=== PATIENT | male | born 1940 | race Caucasian/White ===

== ENCOUNTER 2016-11-14 09:50 | Inpatient (IN) | payer MEDICARE ==
[~2016-11-14] VITALS: Ht 167.6 cm; Wt 80.8 kg
[2016-11-14] VITALS (12 sets, daily range): BP systolic 133–170; BP diastolic 70–90
--- NOTE | ~2016-11-14 | O ---
[place], [place] OPERATIVE NOTE NAME: [id number] UNIT #: [id number] ROOM: [facility] DOCTOR: EFE DELVALLE MD BIRTHDATE: [birth year] DOS: 11/14/2016 PREOPERATIVE DIAGNOSIS: Acute appendicitis. POSTOPERATIVE DIAGNOSIS: Acute appendicitis. PROCEDURE: Laparoscopic appendectomy. SURGEON: Efe Delvalle MD ENROLLMENT SPECIALIST: MS3. ANESTHESIA: General with endotracheal intubation. INDICATIONS: This is a 76-year-old gentleman admitted here with acute appendicitis. It was decided to take the patient to the operating room for a laparoscopic appendectomy. The procedure and its complications explained to the patient in detail. Complications that were discussed included but were not limited to bleeding, infection, hematoma/seroma/abscess formation, prolonged postoperative pain, damage to underlying vital structures. He agreed to proceed. DESCRIPTION OF PROCEDURE: After identifying the patient, the patient was brought to the operating suite and laid in the supine position. After induction of general anesthesia, the parts were painted and draped in the usual sterile fashion and a Kim catheter was introduced prior to painting and draping. The left upper extremity was stuck to the patient's side as well. A timeout procedure was called and transverse incision below the umbilicus was made. The skin and the subcutaneous tissue were incised in the line of the incision. The fascia was incised and the peritoneum was opened. A 10 mm Shukri port was introduced and a pneumoperitoneum was created. Under direct vision, a left lower quadrant incision of 10 mm was made and suprapubic incision of 5 mm was made and appropriate size ports were introduced. The patient was then turned in Trendelenburg, right side up position. The cecum was identified and the appendix was found to be in paracecal position, and it was found to be inflamed and had inflammatory adhesions to the pelvic wall. With the help of blunt dissection, the appendix was from the pelvic wall area, and it was held up with the help of an Endo Brooks forceps. It was then stapled across with the help of an Endo-JUSTIN stapler and placed in an EndoCatch bag and removed from the peritoneal cavity and sent for histopathological diagnosis. Hemostasis was confirmed, and saline was used for irrigation. After hemostasis was confirmed again the saline was sucked away, and there was no more bleeding seen. The suprapubic and the umbilical port was then removed, and there was no bleeding seen. The umbilical port was also removed and the fascial defect was approximated with the help of 0 Vicryl in an interrupted fashion. Thereafter, the stay sutures were tied together as well and these edges of the skin were approximated with the help of 4-0 Vicryl. After they were infiltrated with 1% plain lidocaine, a dressing was given the Kim catheter was removed, and the patient was taken to the recovery room in stable fashion. There were no complications. Dr. Efe Delvalle, the attending surgeon, was present throughout [place], [place] OPERATIVE NOTE NAME: ANSELMOELIZABETH Jaja UNIT #: [id number] ROOM: [facility] DOCTOR: EFE DELVALLE MD BIRTHDATE: [birth year] the operating case. Efe Delvalle MD CM:OPRECORD:OPERATIVE NOTE [id number] EFE DELVALLE MD 11/14/161912 interface
[~2016-11-14 09:50] MED LIST: ASPIRIN PO; AUGMENTIN 875 M1 TAB PO; CIPRO500 MG PO; COMBIVENT1 ARO IH; DONNATAL1 TAB PO; GEMCOR600 MG PO; LATANOPROST 2.2.5 ML OP; LATANOPROST OP; MOTRIN800 MG PO; MULTIPLE VITAMI1 CAP PO; NIACIN500 MG PO; NORFLEX100 MG PO; OMNICEF300 MG PO; OSTEO-BI-FLEX 21 TAB PO; RAPID FLOW; TERAZOSIN HCL2 M1 PO; VICO10300 PO; VICODIN 5/500 505 MG PO; VITAMIN C; VITAMIN D
[2016-11-14] MEDS ORDERED: TAMSULOSIN HCL0.4 MG PO (10:00)
[2016-11-14] MEDS ORDERED: FINASTERIDE5 M1 PO (10:00)
[2016-11-14 10:25] LABS: BASO # 0.1 10*3/uL (0.0-0.1); BASO % 0.4 % (0.0-1.0); EOS # 0.2 10*3/uL (0.0-0.4); EOS % 1.6 % (1.0-4.0); HEMATOCRIT 46.1 % (42.0-52.0); HEMOGLOBIN 15.4 g/dl (14.0-18.0); IG # 0.1 10*3/uL (0.0-0.1); LYMPH # 1.7 10*3/uL (1.3-4.4); LYMPH % 13.2 % (27.0-41.0); MEAN CELL VOLUME 90.4 fl (80.0-94.0); MEAN CORPUSCULAR HGB 30.2 pg (27.0-31.0); MEAN CORPUSCULAR HGB CONC 33.4 g/dl (33.0-37.0); MONO # 1.3 10*3/uL (0.1-1.0); MONO % 9.9 % (3.0-9.0); NEUT # 9.6 10*3/uL (2.3-7.9); NEUT % 74.5 % (47.0-73.0); PLATELET COUNT AUTOMATED 208 10*3/uL (130-400); RED CELL DISTRI WIDTH 12.6 % (0-14.5); WHITE BLOOD COUNT 12.9 10*3/uL (4.8-10.8)
[2016-11-14 10:27] LABS: BILIRUBIN NEGATIVE (NEGATIVE); BLOOD NEGATIVE (NEGATIVE); CLARITY CLEAR (CLEAR); COLOR YELLOW (YELLOW); GLUCOSE NEGATIVE (NEGATIVE); KETONE NEGATIVE (NEGATIVE); LEUKO ESTERASE NEGATIVE (NEGATIVE); NITRITE NEGATIVE (NEGATIVE); PH 5.5 (5.0-9.0); PROTEIN NEGATIVE (NEGATIVE); SPECIFIC GRAVITY 1.025 (1.005-1.030); UROBILINOGEN 0.2 E.U./dl (0.2-1.0)
[2016-11-14 10:34] LABS: MUCOUS 1+; RBC 0-2 rbc/hpf (0-2); URINE REFLEX COMMENT NO (NO); WBC 0-2 wbc/hpf (0-5)
[2016-11-14 10:39] LABS: ALBUMIN 3.5 gm/dl (3.1-4.5); ALKALINE PHOSPHATASE 63 U/L (45-117); BUN 16 mg/dl (7-24); CARBON DIOXIDE 29 mmol/L (21-32); CHLORIDE 106 mmol/L (98-107); EST GLOM FILT AFRICAN AMERICAN > 60 ml/min; GLUCOSE 89 mg/dL (65-99); POTASSIUM 4.2 mmol/L (3.5-5.1); SGOT/AST 9 IU/L (3-35); SGPT/ALT 22 U/L (12-78); SODIUM 143 mmol/L (136-145); TOTAL PROTEIN 6.7 gm/dL (6.4-8.2)
[2016-11-14] MEDS ORDERED: OSTEO BI-FLEX1 EAC1 PO (14:57)
[2016-11-14] MEDS ORDERED: MULTI VITAMINS1 TAB PO (14:57)
[2016-11-14] MEDS ORDERED: CALCIUM 600600 M2 PO (14:58)
[2016-11-15] VITALS: BP 159/99
[2016-11-15 02:58] LABS: BILIRUBIN NEGATIVE (NEGATIVE); BLOOD 3+ (NEGATIVE); CLARITY SL CLOUDY (CLEAR); COLOR YELLOW (YELLOW); GLUCOSE NEGATIVE (NEGATIVE); KETONE NEGATIVE (NEGATIVE); LEUKO ESTERASE TRACE (NEGATIVE); NITRITE NEGATIVE (NEGATIVE); PROTEIN NEGATIVE (NEGATIVE); SPECIFIC GRAVITY <= 1.005 (1.005-1.030); UROBILINOGEN 0.2 E.U./dl (0.2-1.0)
[2016-11-15 03:04] LABS: BASO # 0.1 10*3/uL (0.0-0.1); BASO % 0.5 % (0.0-1.0); EOS # 0.1 10*3/uL (0.0-0.4); EOS % 0.6 % (1.0-4.0); HEMATOCRIT 42.4 % (42.0-52.0); HEMOGLOBIN 14.5 g/dl (14.0-18.0); LYMPH # 1.2 10*3/uL (1.3-4.4); LYMPH % 9.3 % (27.0-41.0); MEAN CELL VOLUME 89.1 fl (80.0-94.0); MEAN CORPUSCULAR HGB 30.5 pg (27.0-31.0); MEAN CORPUSCULAR HGB CONC 34.2 g/dl (33.0-37.0); MEAN PLATELET VOLUME 10.2 fl (9.6-12.3); MONO # 1.1 10*3/uL (0.1-1.0); MONO % 9.1 % (3.0-9.0); NEUT # 9.9 10*3/uL (2.3-7.9); NEUT % 80.3 % (47.0-73.0); PLATELET COUNT AUTOMATED 194 10*3/uL (130-400); RED BLOOD COUNT 4.76 10*6/uL (4.50-5.90); RED CELL DISTRI WIDTH 12.7 % (0-14.5); WHITE BLOOD COUNT 12.4 10*3/uL (4.8-10.8)
[2016-11-15 03:08] LABS: RBC 41-50 rbc/hpf (0-2); URINE REFLEX COMMENT YES (NO)
[2016-11-15 03:08] LABS: BASO # 0.1 10*3/uL (0.0-0.1); BASO % 0.5 % (0.0-1.0); EOS # 0.1 10*3/uL (0.0-0.4); EOS % 0.6 % (1.0-4.0); HEMATOCRIT 42.3 % (42.0-52.0); HEMOGLOBIN 14.4 g/dl (14.0-18.0); IG # 0.1 10*3/uL (0.0-0.1); LYMPH # 1.1 10*3/uL (1.3-4.4); LYMPH % 8.9 % (27.0-41.0); MEAN CELL VOLUME 89.4 fl (80.0-94.0); MEAN CORPUSCULAR HGB 30.4 pg (27.0-31.0); MEAN PLATELET VOLUME 10.2 fl (9.6-12.3); MONO # 1.1 10*3/uL (0.1-1.0); MONO % 8.8 % (3.0-9.0); NEUT # 10.1 10*3/uL (2.3-7.9); NEUT % 80.8 % (47.0-73.0); PLATELET COUNT AUTOMATED 196 10*3/uL (130-400); RED BLOOD COUNT 4.73 10*6/uL (4.50-5.90); RED CELL DISTRI WIDTH 12.6 % (0-14.5); WHITE BLOOD COUNT 12.5 10*3/uL (4.8-10.8)
[2016-11-15 03:15] LABS: INTERNATIONAL NORM RATIO 1.1 (2.0-3.5); PROTHROMBIN TIME 11.4 SECONDS (9.0-12.4)
[2016-11-15 03:20] LABS: ALBUMIN 3.2 gm/dl (3.1-4.5); ALKALINE PHOSPHATASE 55 U/L (45-117); BILIRUBIN, TOTAL 1.2 mg/dl (0.2-1.0); BUN 14 mg/dl (7-24); CARBON DIOXIDE 26 mmol/L (21-32); CHLORIDE 107 mmol/L (98-107); CHOLESTEROL 100 mg/dL (<200); EST GLOM FILT AFRICAN AMERICAN > 60 ml/min; GLUCOSE 102 mg/dL (65-99); HDL CHOLESTEROL 36 mg/dl (40-60); LDL CHOLESTEROL 41 mg/dL (9-159); PHOSPHOROUS 3.5 mg/dL (2.5-4.9); POTASSIUM 4.2 mmol/L (3.5-5.1); SGOT/AST 13 IU/L (3-35); SGPT/ALT 17 U/L (12-78); SODIUM 142 mmol/L (136-145); TOTAL PROTEIN 6.2 gm/dL (6.4-8.2); TRIGLYCERIDES 113 mg/dl (<150); VLDL CHOLESTEROL 23 mg/dL (6-40)
[2016-11-15 03:28] LABS: FREE T4 1.29 ng/dl (0.76-1.46)
[2016-11-15 06:13] LABS: FOLIC ACID 20.91 ng/mL (>5.38); VITAMIN D, 25-HYDROXY 34.3 ng/mL (30-100)
[2016-11-15 08:00] VITALS: BP 166/86
[2016-11-15] MEDS ORDERED: ACETAMINOPHEN-H1 TA2 PO (09:58)
== END 2016-11-15 10:42 | disposition home or self-care (01) | DRG 853 ==
LOC: ED 09:50 → EDHOLD 13:35 → 5E 13:35
PROVIDERS: Emergency Medicine; Student in an Organized Health Care Education/Training Program; Surgery
PROC: 0DTJ4ZZ Resection of Appendix, Percutaneous Endoscopic Approach (ICD-10-PCS; principal; 2016-11-14)
DX: A41.9 Sepsis, unspecified organism (principal); K35.3 Acute appendicitis with localized peritonitis; R31.9 Hematuria, unspecified; R03.0 Elevated blood-pressure reading, without diagnosis of hypertension; N40.0 Benign prostatic hyperplasia without lower urinary tract symptoms; H40.9 Unspecified glaucoma; Z82.49 Family history of ischemic heart disease and other diseases of the circulatory system; Z82.0 Family history of epilepsy and other diseases of the nervous system; Z79.899 Other long term (current) drug therapy; Z90.49 Acquired absence of other specified parts of digestive tract

== ENCOUNTER → 2016-12-05 | Outpatient (CLI) | payer MEDICARE ==
[~2016-12-05] MED LIST changes: +ACETAMINOPHEN-H1 TA2 PO; +CALCIUM 600600 M2 PO; +FINASTERIDE5 M1 PO; +MULTI VITAMINS1 TAB PO; +OSTEO BI-FLEX1 EAC1 PO; +TAMSULOSIN HCL0.4 MG PO
== END | disposition home or self-care (01) ==
LOC: LAB 10:23
DX: R97.20 Elevated prostate specific antigen [PSA] (principal)

== ENCOUNTER → 2017-06-05 | Outpatient (CLI) | payer MEDICARE | END | disposition home or self-care (01) | LOC: LAB 10:02 | DX: R97.20 Elevated prostate specific antigen [PSA] (principal) ==

== ENCOUNTER → 2018-06-27 | Outpatient (CLI) | payer MEDICARE | END | disposition home or self-care (01) | LOC: RAD 15:12 | DX: M47.896 Other spondylosis, lumbar region (principal) ==

== ENCOUNTER → 2019-01-16 | Outpatient (CLI) | payer OTHER | END | disposition home or self-care (01) | LOC: MRI 10:00 | DX: F03.91 Unspecified dementia, unspecified severity, with behavioral disturbance (principal); I67.82 Cerebral ischemia ==

== ENCOUNTER 2019-07-26 13:39 | Emergency (ER) | payer MEDICARE ==
[~2019-07-26] VITALS: Ht 167.6 cm; Wt 74.8 kg
--- NOTE | ~2019-07-26 | EKG ---
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
--- NOTE | ~2019-07-26 | EKG ---
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
[2019-07-26 13:57] LABS: BASO # 0.1 10*3/uL (0.0-0.1); BASO % 0.9 % (0.0-1.0); EOS # 0.2 10*3/uL (0.0-0.4); EOS % 2.8 % (1.0-4.0); HEMATOCRIT 45.6 % (42.0-52.0); HEMOGLOBIN 15.2 g/dl (14.0-18.0); LYMPH # 1.6 10*3/uL (1.3-4.4); MEAN CELL VOLUME 92.3 fl (80.0-94.0); MEAN CORPUSCULAR HGB 30.8 pg (27.0-31.0); MEAN CORPUSCULAR HGB CONC 33.3 g/dl (33.0-37.0); MEAN PLATELET VOLUME 10.4 fl (9.6-12.3); MONO # 0.6 10*3/uL (0.1-1.0); MONO % 9.2 % (3.0-9.0); NEUT # 4.3 10*3/uL (2.3-7.9); PLATELET COUNT AUTOMATED 215 10*3/uL (130-400); RED BLOOD COUNT 4.94 10*6/uL (4.50-5.90); RED CELL DISTRI WIDTH 12.3 % (0-14.5); WHITE BLOOD COUNT 6.8 10*3/uL (4.8-10.8)
[2019-07-26 14:07] LABS: ACT PARTIAL THROMBO TIME 27.7 SECONDS (20.0-32.1)
[2019-07-26 14:16] LABS: ALBUMIN 3.6 gm/dl (3.1-4.5); ALKALINE PHOSPHATASE 66 U/L (45-117); BUN 17 mg/dl (7-24); CHLORIDE 107 mmol/L (98-107); CREATININE 0.86 mg/dL (0.70-1.30); POTASSIUM 3.8 mmol/L (3.5-5.1); SGOT/AST 15 IU/L (3-35); SGPT/ALT 23 U/L (12-78); SODIUM 141 mmol/L (136-145); TOTAL PROTEIN 6.8 gm/dL (6.4-8.2)
[2019-07-26 14:27] LABS: TROPONIN I < 0.015 ng/ml (<0.045)
== END 2019-07-26 16:45 | disposition home or self-care (01) ==
LOC: ED 13:39
PROVIDERS: Emergency Medicine
DX: R07.89 Other chest pain (principal); M06.9 Rheumatoid arthritis, unspecified; Z87.442 Personal history of urinary calculi; Z79.899 Other long term (current) drug therapy; Z90.49 Acquired absence of other specified parts of digestive tract

== ENCOUNTER → 2019-08-08 | Outpatient (CLI) | payer MEDICARE ==
[~2019-08-08] MED LIST changes: +ARICEPT10 M1 PO
--- NOTE | 2019-08-08 10:00 | NUR ---
INFORMED CONSENT OBTAINED FOR EXERCISE CARIOLITE STRESS TEST WITH DR. LUZ. RESTING EKG NSR WITH A SUPINE HR OF 75 WITH BP OF 124/68 AND HR OF 78 WITH BP OF 130/80 IN STANDING POSITION. PT COMPLETED 7:00 OF A SAMY PROTOCOL WITH COMPLETION OF 1:00 OF STAGE III AT 3.4 MPH AND 14% GRADE. REACHED A PEAK HR OF 126 WHICH IS 91% OF PREDICTED MAX WITH A PEAK BP OF 156/30. TEST TERMINATED BECAUSE OF PHYSICIAN DISCRETION. HAD NO CHEST PAIN OR ANY EKG CHANGES. HAS A GOOD EXERCISE TOLERANCE. LAST RECOVERY HR OF 91 WITH BP OF 130/74. AWAITING SCANNING IN STABLE CONDITION.
== END | disposition home or self-care (01) ==
LOC: CARD 08-06 08:00
DX: R07.89 Other chest pain (principal)

== ENCOUNTER → 2020-04-28 | Outpatient (CLI) | payer MEDICARE | END | disposition home or self-care (01) | LOC: US 14:30 | PROVIDERS: ATTEND Physician Assistant | DX: N63.21 Unspecified lump in the left breast, upper outer quadrant (principal) ==

== ENCOUNTER → 2020-05-20 | Day surgery (SDC) | payer MEDICARE ==
[2020-05-20 10:30] LABS: ACT PARTIAL THROMBO TIME 28.7 SECONDS (20.0-32.1)
== END | disposition home or self-care (01) ==
LOC: SDC 01:34
PROVIDERS: ATTEND Physician Assistant
DX: D68.8 Other specified coagulation defects (principal); N63.0 Unspecified lump in unspecified breast; I48.91 Unspecified atrial fibrillation; I26.99 Other pulmonary embolism without acute cor pulmonale; Z79.899 Other long term (current) drug therapy

== ENCOUNTER → 2020-06-22 | Outpatient (CLI) | payer MEDICARE | END | disposition home or self-care (01) | LOC: LAB 11:37 | PROVIDERS: ATTEND Urology | DX: N40.1 Benign prostatic hyperplasia with lower urinary tract symptoms (principal) ==

== ENCOUNTER 2020-11-06 10:05 | Emergency (ER) | payer MEDICARE ==
[~2020-11-06] VITALS: Ht 167.6 cm; Wt 73.5 kg
[2020-11-06 11:00] LABS: BILIRUBIN Negative (Negative); BLOOD 3+ (Negative); CLARITY Turbid (Clear); COLOR Yellow (Yellow); GLUCOSE Negative (Negative); KETONE Negative (Negative); LEUKO ESTERASE 3+ (Negative); NITRITE Positive (Negative); PH 5.5 (4.5-8.0); SPECIFIC GRAVITY 1.015 (1.001-1.030); UROBILINOGEN 0.2 E.U./dl (0.0-1.0)
[2020-11-06 11:09] LABS: RBC TNTC rbc/hpf (0-2)
[2020-11-06 11:10] LABS: WBC TNTC wbc/hpf (0-5)
[2020-11-06 11:25] LABS: BASO # 0.1 10*3/uL (0.0-0.1); BASO % 0.8 % (0.0-1.0); EOS # 0.2 10*3/uL (0.0-0.4); EOS % 1.6 % (1.0-4.0); HEMATOCRIT 45.7 % (42.0-52.0); LYMPH # 1.1 10*3/uL (1.3-4.4); LYMPH % 12.3 % (27.0-41.0); MEAN CELL VOLUME 89.8 fl (80.0-94.0); MEAN CORPUSCULAR HGB 30.5 pg (27.0-31.0); MEAN CORPUSCULAR HGB CONC 33.9 g/dl (33.0-37.0); MEAN PLATELET VOLUME 10.2 fl (9.6-12.3); MONO # 0.8 10*3/uL (0.1-1.0); MONO % 8.3 % (3.0-9.0); NEUT # 7.1 10*3/uL (2.3-7.9); NEUT % 76.8 % (47.0-73.0); PLATELET COUNT AUTOMATED 214 10*3/uL (130-400); RED BLOOD COUNT 5.09 10*6/uL (4.50-5.90); RED CELL DISTRI WIDTH 12.4 % (0-14.5); WHITE BLOOD COUNT 9.2 10*3/uL (4.8-10.8)
[2020-11-06 11:41] LABS: ALBUMIN 3.3 gm/dl (3.1-4.5); ALKALINE PHOSPHATASE 69 U/L (45-117); BUN 13 mg/dl (7-24); CHLORIDE 111 mmol/L (98-107); CREATININE 1.07 mg/dL (0.70-1.30); LIPASE 59 U/L (73-393); POTASSIUM 3.4 mmol/L (3.5-5.1); SGOT/AST 10 IU/L (3-35); SGPT/ALT 20 U/L (12-78); SODIUM 141 mmol/L (136-145); TOTAL PROTEIN 6.5 gm/dL (6.4-8.2)
[2020-11-06] MEDS ORDERED: CIPRO500 MG PO (12:14)
== END 2020-11-06 12:16 | disposition home or self-care (01) ==
LOC: ED 10:05
PROVIDERS: Emergency Medicine
DX: N39.0 Urinary tract infection, site not specified (principal); Z79.899 Other long term (current) drug therapy; Z90.49 Acquired absence of other specified parts of digestive tract